=== PATIENT | female | born 1950 | race Caucasian/White ===

== ENCOUNTER → 2018-04-10 | Outpatient (CLI) | payer MEDICARE, BC ==
--- NOTE | 2018-04-10 16:20 | RADIOLOGY REPORT (SQ) ---
EXAM DESCRIPTION: MRI LT LOWER JOINT WITHOUT COMPLETED DATE/TIME: 04/10/2018 3:50 pm REASON FOR STUDY: DERANGEMENT OF UNSOECIFIED MEDIAL MENISCUS DUE TO OLD TEAR M22.3X2 OTHER DERANGEM ENTS OF PATELLA, LEFT KNEE COMPARISON: None. TECHNIQUE: Leftknee images acquired and stored on PACS. Multiplanar images include fat sensitive se quences as T1, water sensitive sequences as FST2 or STIR, cartilage sensitive sequences as FSPD, and gradient echo sequences. LIMITATIONS: None. FINDINGS: JOINT AND BURSAE: No effusion. BONE CORTEX AND MARROW: No alteration of signal to suggest marrow replacement. No worrisome bone lesi ons. No occult fracture. ACL: Intact. No degeneration or ganglion cyst. PCL: Intact. MCL: Intact. No periligamentous edema or fluid. LCL: Intact. No periligamentous edema or fluid. MEDIAL MENISCUS: No tears. No abnormal signal. LATERAL MENISCUS: Small horizontal tear anterior horn lateral meniscus without parameniscal cyst. Th is is best shown on sagittal images 17 and 18 MEDIAL COMPARTMENT: Very mild chondromalacia. No bone bruises or reactive marrow edema. No osteophyte s. LATERAL COMPARTMENT: Very mild chondromalacia. No bone bruises or reactive marrow edema. No osteophyt es. PATELLA: Mild chondromalacia. No subchondral cysts. Medial and lateral retinacula intact. EXTENSOR MECHANISM: Intact. Quadriceps and patella tendons normal. SOFT TISSUES: There is increased intrinsic signal along the proximal tendon medial head gastrocnemius muscle, proximal tendon is high in signal on sagittal image 7-9 and coronal images 18-21. Suspect m ild tendinopathy. OTHER: No other significant finding. IMPRESSION: Tiny horizontal tear anterior horn lateral meniscus without parameniscal cyst TECHNICAL DOCUMENTATION: JOB ID: [id number] [employer]- All Rights Reserved Reading location - IP/workstation name: [email or web address]
== END ==
LOC: RAD 14:19
PROVIDERS: ATTEND Orthopaedic Surgery
DX: M23.242 Derangement of anterior horn of lateral meniscus due to old tear or injury, left knee (principal)

== ENCOUNTER 2020-09-29 08:28 | Emergency (ER) | payer MEDICARE, BC ==
[2020-09-29] MEDS ORDERED: ACETAMINOPHEN 325 MG TABLET PO ONE (09:24)
[2020-09-29] MEDS ORDERED: NORMAL SALINE 1000 ML 1,000 ML IV ONE (10:03)
--- NOTE | 2020-09-29 10:05 | ER Document Report ---
ED Medical Screen (RME) - General Chief Complaint: Flank Pain Stated Complaint: FLANK PAIN Time Seen by Provider: 09/29/20 09:54 Primary Care Provider: OMID GUERRA MD [Primary Care Provider] - Follow up as needed Mode of Arrival: Ambulatory Information source: Patient Notes: 70-year-old female presented to ED for right upper quadrant pain. She states she does not have any nausea vomiting diarrhea or fever. She states is been going on for 2 weeks. She states she does have a history of high blood pressure and hypothyroidism. I did use rock dust sprayer #[id number] [place] sign language as patient and family are deaf. I have ordered blood urine ultrasound and IV fluids as patient has significant tenderness to the right upper quadrant. I have greeted and performed a rapid initial assessment of this patient. A comprehensive ED assessment and evaluation of the patient, analysis of test results and completion of medical decision making process will be conducted by an additional ED providers. TRAVEL OUTSIDE OF THE [place] IN LAST 30 DAYS: No - Related Data Allergies/Adverse Reactions: No Known Allergies Allergy (Unverified 09/29/20 09:26) Physical Exam - Vital signs Vitals: Temp Pulse Resp BP Pulse Ox 97.3 F 93 16 141/67 H 98 09/29/20 08:35 09/29/20 08:35 09/29/20 08:35 09/29/20 08:35 09/29/20 08:35 Course - Vital Signs Vital signs: Temp Pulse Resp BP Pulse Ox 97.3 F 93 16 141/67 H 98 09/29/20 08:35 09/29/20 08:35 09/29/20 08:35 09/29/20 08:35 09/29/20 08:35 Doctor's Discharge - Discharge Referrals: OMID GUERRA MD [Primary Care Provider] - Follow up as needed
--- NOTE | 2020-09-29 11:20 | RADIOLOGY REPORT (SQ) ---
EXAM DESCRIPTION: U/S ABDOMEN LIMITED W/O DOP IMAGES COMPLETED DATE/TIME: 09/29/2020 10:49 am REASON FOR STUDY: ruq abdominal pain severe tenderness to palpa COMPARISON: None. TECHNIQUE: Dynamic and static grayscale images acquired of the abdomen and recorded on PACS. Additio nal selected color Doppler and spectral images recorded. LIMITATIONS: None. FINDINGS: PANCREAS: Not seen. LIVER: Increased echogenicity. No masses. LIVER VASCULATURE: Normal directional flow of the main portal vein and hepatic veins. GALLBLADDER: Appears to be absent. ULTRASOUND-DETECTED ORELLANA'S SIGN: Not applicable. INTRAHEPATIC DUCTS AND COMMON DUCT: CBD and intrahepatic ducts normal caliber. No filling defects. AORTA: Not seen. RIGHT KIDNEY: Normal size, 9.5 cm. Normal echogenicity. No solid or suspicious masses. No hydronephr osis. No calcifications. PERITONEAL AND RIGHT PLEURAL SPACE: No ascites or effusions. OTHER: No other significant findings. IMPRESSION: Hepatic steatosis. There is no acute finding in the right upper quadrant of the abdomen . TECHNICAL DOCUMENTATION: JOB ID: [id number] [employer]- All Rights Reserved Reading location - IP/workstation name: [email or web address]
[2020-09-29 11:51] LABS: ABSOLUTE BASOPHILS # (AUTO) 0.1 10^3/uL (0.0-0.2); ABSOLUTE EOSINOPHILS # (AUTO) 0.3 10^3/uL (0.0-0.6); ABSOLUTE LYMPHOCYTES (AUTO) 1.7 10^3/uL (0.5-4.7); ABSOLUTE MONOCYTES (AUTO) 0.8 10^3/uL (0.1-1.4); ABSOLUTE NEUT (AUTO) 6.8 10^3/uL (1.7-8.2); BASOPHILS % (AUTO) 0.6 % (0-2); EOSINOPHILS % (AUTO) 3.2 % (0-6); HEMATOCRIT 44.5 % (36.0-47.0); HEMOGLOBIN 15.3 g/dL (12.0-15.5); LYMPHOCYTES % (AUTO) 17.2 % (13-45); MEAN CORPUSCULAR HEMOGLOBIN 32.7 pg (27.0-33.4); MEAN CORPUSCULAR HGB CONC 34.5 g/dL (32.0-36.0); MEAN CORPUSCULAR VOLUME 95 fl (80-97); MONOCYTES % (AUTO) 8.6 % (3-13); PLATELET COUNT 393 10^3/uL (150-450); RED BLOOD COUNT 4.68 10^6/uL (3.72-5.28); RED CELL DISTRIBUTION WIDTH 13.6 % (11.5-14.0); SEGMENTED NEUTROPHILS % (AUTO) 70.4 % (42-78); TOTAL CELLS COUNTED % (AUTO) 100 %; WHITE BLOOD COUNT 9.7 10^3/uL (4.0-10.5)
[2020-09-29 12:47] LABS: APPEARANCE,URINE CLEAR; BILIRUBIN,URINE NEGATIVE (NEGATIVE); COLOR,URINE STRAW; GLUCOSE, URINE NEGATIVE (NEGATIVE); KETONES,URINE NEGATIVE (NEGATIVE); LEUKOCYTE ESTERASE,URINE NEGATIVE (NEGATIVE); NITRITE,URINE NEGATIVE (NEGATIVE); PROTEIN,URINE NEGATIVE (NEGATIVE); URINE SPECIFIC GRAVITY 1.005; UROBILINOGEN,URINE NEGATIVE mg/dL (<2.0)
--- NOTE | 2020-09-29 13:57 | ER Document Report ---
ED General - General Chief Complaint: Abdominal Pain Stated Complaint: FLANK PAIN Time Seen by Provider: 09/29/20 09:54 Primary Care Provider: OMID GUERRA MD [Primary Care Provider] - Follow up as needed Mode of Arrival: Ambulatory Information source: Patient TRAVEL OUTSIDE OF THE [place] IN LAST 30 DAYS: No - HPI Notes: Patient patient has right lateral chest pain. She states this started several days ago. She does not know of any injuries. She has had no cough cold or congestion. No vomiting or diarrhea. This pain has been relatively constant. It does not radiate. Is been mild to moderate. Is an aching sensation. She denies any fever sweats or chills. - Related Data Allergies/Adverse Reactions: Cephalosporins Allergy (Verified 09/29/20 11:21) Penicillins Allergy (Verified 09/29/20 11:21) Home Medications: levothyroxine, losartan, pantoprazole Past Medical History - General Information source: Patient - Social History Smoking Status: Never Smoker Chew tobacco use (# tins/day): No Frequency of alcohol use: Rare Drug Abuse: None Family History: Reviewed & Not Pertinent Review of Systems - Review of Systems Constitutional: denies: Chills, Fever Cardiovascular: Chest pain. denies: Palpitations Respiratory: denies: Cough, Short of breath -: Yes All other systems reviewed and negative Physical Exam - Vital signs Vitals: Temp Pulse Resp BP Pulse Ox 97.3 F 93 16 141/67 H 98 09/29/20 08:35 09/29/20 08:35 09/29/20 08:35 09/29/20 08:35 09/29/20 08:35 Interpretation: Normal - General General appearance: Appears well, Alert - HEENT Head: Normocephalic, Atraumatic Eyes: Normal Pupils: PERRL - Respiratory Respiratory status: No respiratory distress Chest status: Tender - Right lateral chest is tender to palpation. No crepitus. Breath sounds: Normal - Cardiovascular Rhythm: Regular Heart sounds: Normal auscultation Murmur: No - Abdominal Inspection: Normal Distension: No distension Bowel sounds: Normal Tenderness: Nontender Organomegaly: No organomegaly - Back Back: Normal, Nontender - Extremities General upper extremity: Normal inspection, Nontender, Normal color, Normal ROM, Normal temperature General lower extremity: Normal inspection, Nontender, Normal color, Normal ROM, Normal temperature, Normal weight bearing. No: Artur's sign - Neurological Neuro grossly intact: Yes Cognition: Normal Orientation: AAOx4 Emiliano Coma Scale Eye Opening: Spontaneous Emiliano Coma Scale Verbal: Oriented Emiliano Coma Scale Motor: Obeys Commands [place] Coma Scale Total: 15 Speech: Normal Motor strength normal: LUE, RUE, LLE, RLE Sensory: Normal - Psychological Associated symptoms: Normal affect, Normal mood - Skin Skin Temperature: Warm Skin Moisture: Dry Skin Color: Normal Course - Re-evaluation Re-evalutation: 09/29/20 13:59 Patient presents with right lateral chest pain right upper quadrant abdominal pain. It does not appear cardiac as patient is point tender to the right lateral lower chest. No evidence of any type of gallbladder or liver disease on ultrasound other than patient does have some hepatic steatosis. I do not believe this accounts for the pain. She will be recommended for follow-up. Patient has no evidence of any pulmonary pathology. I will send the patient home with pain medication. - Vital Signs Vital signs: Temp Pulse Resp BP Pulse Ox 97.3 F 93 16 141/67 H 98 09/29/20 08:35 09/29/20 08:35 09/29/20 08:35 09/29/20 08:35 09/29/20 08:35 - Laboratory Result Diagrams: 09/29/20 11:27 - Diagnostic Test Radiology reviewed: Image reviewed, Reports reviewed Discharge - Discharge Clinical Impression: Hepatic steatosis, Chest wall pain Condition: Stable Disposition: HOME, SELF-CARE Instructions: Chest Wall Pain ([facility]) Additional Instructions: The ultrasound of your liver has evidence of what we call "fatty liver". This is where you have an abundance of fat cells that have invaded your liver. The best treatment for this is weight loss. You will also need your family doctor to follow this with serial imaging studies for you. Please call your primary care doctor as soon as possible to arrange for the follow-up. Forms: Return to Work Referrals: OMID GUERRA MD [Primary Care Provider] - Follow up in 3-5 days
--- NOTE | 2020-09-29 14:13 | RADIOLOGY REPORT (SQ) ---
EXAM DESCRIPTION: CHEST 2 VIEWS IMAGES COMPLETED DATE/TIME: 09/29/2020 1:59 pm REASON FOR STUDY: right lat cp COMPARISON: None. EXAM PARAMETERS: NUMBER OF VIEWS: two views TECHNIQUE: Digital Frontal and Lateral radiographic views of the chest acquired. RADIATION DOSE: NA LIMITATIONS: none FINDINGS: LUNGS AND PLEURA: No opacities, masses or pneumothorax. No pleural effusion. MEDIASTINUM AND HILAR STRUCTURES: No masses or contour abnormalities. HEART AND VASCULAR STRUCTURES: Heart normal size. No evidence for failure. BONES: No acute findings. HARDWARE: None in the chest. OTHER: Elevation right hemidiaphragm. -probably chronic IMPRESSION: NO ACUTE RADIOGRAPHIC FINDING IN THE CHEST. TECHNICAL DOCUMENTATION: JOB ID: [id number] 2010 [email or web address]- All Rights Reserved Reading location - IP/workstation name: [email or web address]
[2020-09-29 14:46] VITALS: BP 130/45
== END 2020-09-29 14:44 | disposition home or self-care (01) ==
LOC: ER 08:28
DX: R07.89 Other chest pain (principal); K76.0 Fatty (change of) liver, not elsewhere classified; Z88.0 Allergy status to penicillin
CPT/HCPCS: 99285; 96360; 36415; 87086; 83690; 85025; 81001; 71046; 76705; A9270; J7030